=== PATIENT | female | born 1990 | race Caucasian/White ===

== ENCOUNTER 2016-12-10 20:07 | Inpatient (IN) | payer MEDICAID ==
[~2016-12-10] VITALS: Ht 162.6 cm; Wt 152.4 kg
[~2016-12-10 20:07] MED LIST: ALBU18HF2 IH
[2016-12-10] MEDS ORDERED: NITROGLYCERIN OINT 1GM/INCH UDPKT TD STA (21:19)
[2016-12-10] MEDS ORDERED: FUROSEMIDE 40MG/4ML VIAL IV STA (21:19)
[2016-12-10] MEDS ORDERED: ASPIRIN 81MG TABLET PO STA (21:19)
[2016-12-10 21:39] LABS: BASOPHILS % 0.4 % (0.0-2.0); EOSINOPHILS % 1.3 % (0.0-5.0); HEMATOCRIT. 45.2 % (36.0-48.0); HEMOGLOBIN. 14.2 g/dL (12.0-16.0); LYMPHOCYTES % 11.8 % (20.0-50.0); MEAN CORPUSCULAR HEMOGLOBIN 25.8 pg (28.0-32.0); MEAN CORPUSCULAR HGB CONC 31.3 g/dL (31.0-37.0); MEAN CORPUSCULAR VOLUME 82.3 fL (81.0-99.0); MEAN PLATELET VOLUME 9.1 fl (7.4-10.4); MONOCYTES % 7.7 % (2.0-8.0); NEUTROPHILS % 78.8 % (40.0-76.0); PLATELET 232 x1000/uL (130-400); RED BLOOD CELL COUNT 5.49 mill/uL (4.2-5.4); RED CELL DISTRIBUTION WIDTH 22.6 % (11.6-14.6); WHITE BLOOD COUNT 16.8 x1000/uL (4.5-11.0)
[2016-12-10 21:40] LABS: ADD RBC MORPHOLOGY YES; DIFFERENTIAL COMMENT 1
[2016-12-10 21:45] LABS: HCG SCREEN NEGATIVE; INR 1.2; PROTHROMBIN TIME 12.7 sec
[2016-12-10 21:46] LABS: ANION GAP 13; CALCIUM 8.2 mg/dL (8.5-10.1); CARBON DIOXIDE 33 mEq/L (21-32); CHLORIDE 98 mEq/L (98-107); INDEX HEMOLYSI 1 (1-3); INDEX ICTERIC 1 (1-4); INDEX LIPEMIC 1 (1-3); LIPASE 102 IU/L (73-393); UREA NITROGEN BLOOD 14 mg/dL (7-21)
[2016-12-10 21:54] LABS: ALANINE AMINOTRANSFERASE 29 IU/L (13-61); NT PRO B-TYPE NATRIURETIC PEP 1430 pg/mL (5-125); TROPONIN I < 0.02 ng/mL (0.00-0.04); eGFR > 60 mL/min (>60)
[2016-12-10 21:57] LABS: ANISOCYTOSIS 1+; PLATELET ESTIMATE NORMAL
[2016-12-11] VITALS (7 sets, daily range): BP systolic 98–113; BP diastolic 52–70
[2016-12-11] MEDS ORDERED: CEFTRIAXONE 1 G PREMIX 50 ML IV ONE (01:00)
[2016-12-11 02:01] LABS: CLARITY URINE CLOUDY (CLEAR); COLOR URINE YELLOW (YELLOW); GLUCOSE URINE NEGATIVE (NEGATIVE); KETONES URINE NEGATIVE (NEGATIVE); LEUKOCYTE ESTERASE URINE 2+ (NEGATIVE); NITRITE URINE NEGATIVE (NEGATIVE); OCCULT BLOOD URINE 2+ (NEGATIVE); PROTEIN URINE 1+ (NEGATIVE); SPECIFIC GRAVITY URINE 1.007 (1.005-1.030); UROBILINOGEN URINE 0.2 E.U./dL (0.2-1.0)
[2016-12-11 02:52] LABS: SQUAMOUS EPITHELIAL CELL URINE 3+ /lpf (RARE/1+)
[2016-12-11 02:54] LABS: BACTERIA URINE 2+
[2016-12-11] MEDS ORDERED: ACETAMINOPHEN 325MG TABLET PO PRN (06:15)
[2016-12-11] MEDS ORDERED: CLONIDINE 0.1MG TABLET PO PRN (06:15)
[2016-12-11] MEDS ORDERED: ONDANSETRON HCL 4MG/2ML VIAL IV PRN (06:15)
[2016-12-11] MEDS: FUROSEMIDE 40MG/4ML VIAL IVP SCH ×3 (06:41→21:28)
[2016-12-11] MEDS: ENOXAPARIN 40MG/0.4ML SYR SUBCUT SCH ×2 (08:05→21:29)
[2016-12-11 08:32] LABS: BASOPHILS % 0.4 % (0.0-2.0); EOSINOPHILS % 1.2 % (0.0-5.0); HEMATOCRIT. 43.4 % (36.0-48.0); HEMOGLOBIN. 13.6 g/dL (12.0-16.0); LYMPHOCYTES % 15.4 % (20.0-50.0); MEAN CORPUSCULAR HEMOGLOBIN 25.7 pg (28.0-32.0); MEAN CORPUSCULAR HGB CONC 31.3 g/dL (31.0-37.0); MEAN CORPUSCULAR VOLUME 82.3 fL (81.0-99.0); MEAN PLATELET VOLUME 9.2 fl (7.4-10.4); MONOCYTES % 7.7 % (2.0-8.0); NEUTROPHILS % 75.3 % (40.0-76.0); PLATELET 241 x1000/uL (130-400); RED BLOOD CELL COUNT 5.28 mill/uL (4.2-5.4); RED CELL DISTRIBUTION WIDTH 22.9 % (11.6-14.6); WHITE BLOOD COUNT 13.7 x1000/uL (4.5-11.0)
[2016-12-11 08:38] LABS: DIFFERENTIAL COMMENT 1
[2016-12-11 08:59] LABS: ALANINE AMINOTRANSFERASE 29 IU/L (13-61); ALBUMIN 3.1 g/dL (3.4-5.0); ANION GAP 15; CALCIUM 8.4 mg/dL (8.5-10.1); CARBON DIOXIDE 33 mEq/L (21-32); CHLORIDE 95 mEq/L (98-107); CREATINE KINASE 34 IU/L (26-192); CREATINE KINASE MB FRACTION 0.9 ng/mL (0.5-3.6); INDEX HEMOLYSI 1 (1-3); INDEX ICTERIC 1 (1-4); INDEX LIPEMIC 1 (1-3); MAGNESIUM 1.5 mg/dL (1.8-2.4); TROPONIN I < 0.02 ng/mL (0.00-0.04); UREA NITROGEN BLOOD 14 mg/dL (7-21); eGFR > 60 mL/min (>60)
[2016-12-11] MEDS ORDERED: IPRATROPIUM/ALBUTEROL 0.5-3(2.5)MG/3ML NEB HHN PRN (11:00)
[2016-12-11] MEDS: IPRATROPIUM/ALBUTEROL 0.5-3(2.5)MG/3ML NEB HHN SCH ×3 (12:07→21:14)
[2016-12-11 12:09] LABS: *AMPHETAMINES SCREEN URINE NEGATIVE (NEGATIVE); *BARBITURATES SCREEN URINE NEGATIVE (NEGATIVE); *BENZODIAZEPINES SCREEN URINE NEGATIVE (NEGATIVE); *COCAINE SCREEN URINE NEGATIVE (NEGATIVE); CANNABINOID URINE SCREEN NEGATIVE (NEGATIVE); ECSTASY MDMA SCREEN URINE NEGATIVE (NEGATIVE); METHADONE URINE SCREEN NEGATIVE (NEGATIVE); OPIATES URINE SCREEN NEGATIVE (NEGATIVE); PHENCYCLIDINE URINE SCREEN NEGATIVE (NEGATIVE)
[2016-12-11] MEDS: POTASSIUM CHLORIDE 20MEQ TABLET SR PO SCH (14:14)
[2016-12-11 15:53] LABS: CREATINE KINASE 44 IU/L (26-192); CREATINE KINASE MB FRACTION 1.1 ng/mL (0.5-3.6); INDEX HEMOLYSI 1 (1-3); TROPONIN I < 0.02 ng/mL (0.00-0.04)
[2016-12-11] MEDS ORDERED: MAGNESIUM 2 G PREMIX 50 ML IV NR (16:00)
[2016-12-11] MEDS ORDERED: CEFTRIAXONE 1 G PREMIX 50 ML IV SCH (18:15)
[2016-12-11] MEDS ORDERED: ASPI-1035 PO (19:18)
[2016-12-11] MEDS ORDERED: AMLO2.5T45 PO (19:18)
[2016-12-11] MEDS ORDERED: LEVO25TA7 PO (19:18)
[2016-12-12] MEDS: IPRATROPIUM/ALBUTEROL 0.5-3(2.5)MG/3ML NEB HHN SCH ×6 (00:58→20:09)
[2016-12-12] MEDS: CEFTRIAXONE 1 G PREMIX 50 ML IV SCH (01:17)
[2016-12-12 04:00] VITALS: BP 104/76
[2016-12-12] MEDS: FUROSEMIDE 40MG/4ML VIAL IVP SCH ×3 (05:53→21:26)
[2016-12-12 06:16] LABS: BASOPHILS % 0.2 % (0.0-2.0); EOSINOPHILS % 1.8 % (0.0-5.0); HEMATOCRIT. 43.6 % (36.0-48.0); LYMPHOCYTES % 17.3 % (20.0-50.0); MEAN CORPUSCULAR HEMOGLOBIN 26.5 pg (28.0-32.0); MEAN CORPUSCULAR VOLUME 82.7 fL (81.0-99.0); MEAN PLATELET VOLUME 9.5 fl (7.4-10.4); MONOCYTES % 8.4 % (2.0-8.0); NEUTROPHILS % 72.3 % (40.0-76.0); PLATELET 223 x1000/uL (130-400); RED BLOOD CELL COUNT 5.27 mill/uL (4.2-5.4); RED CELL DISTRIBUTION WIDTH 22.6 % (11.6-14.6); WHITE BLOOD COUNT 10.7 x1000/uL (4.5-11.0)
[2016-12-12 06:49] LABS: ANION GAP 14; CALCIUM 8.4 mg/dL (8.5-10.1); CARBON DIOXIDE 35 mEq/L (21-32); CHLORIDE 94 mEq/L (98-107); INDEX HEMOLYSI 1 (1-3); INDEX ICTERIC 1 (1-4); INDEX LIPEMIC 1 (1-3); UREA NITROGEN BLOOD 15 mg/dL (7-21); eGFR > 60 mL/min (>60)
[2016-12-12 07:04] LABS: DIFFERENTIAL COMMENT 1
[2016-12-12 08:00] VITALS: BP 105/59
[2016-12-12] MEDS: AMLODIPINE 2.5MG TABLET PO SCH (08:20)
[2016-12-12] MEDS: POTASSIUM CHLORIDE 20MEQ TABLET SR PO SCH (08:20)
[2016-12-12] MEDS: ASPIRIN 81MG EC TABLET PO SCH (08:20)
[2016-12-12] MEDS: LEVOTHYROXINE SODIUM 25MCG TABLET PO SCH (08:20)
[2016-12-12] MEDS: MAGNESIUM OXIDE 400MG TABLET PO SCH (08:20)
[2016-12-12] MEDS: ENOXAPARIN 40MG/0.4ML SYR SUBCUT SCH ×2 (08:21→21:26)
[2016-12-12 12:00] VITALS: BP 98/70
[2016-12-12 20:00] VITALS: BP 101/66
[2016-12-13] VITALS: BP 105/70
[2016-12-13] MEDS: IPRATROPIUM/ALBUTEROL 0.5-3(2.5)MG/3ML NEB HHN SCH ×6 (00:19→20:52)
[2016-12-13] MEDS: CEFTRIAXONE 1 G PREMIX 50 ML IV SCH (00:57)
[2016-12-13 04:00] VITALS: BP 100/71
[2016-12-13] MEDS: FUROSEMIDE 40MG/4ML VIAL IVP SCH ×3 (05:31→21:58)
[2016-12-13 06:49] LABS: BASOPHILS % 0.3 % (0.0-2.0); EOSINOPHILS % 2.5 % (0.0-5.0); HEMATOCRIT. 44.6 % (36.0-48.0); HEMOGLOBIN. 14.3 g/dL (12.0-16.0); LYMPHOCYTES % 18.1 % (20.0-50.0); MEAN CORPUSCULAR HEMOGLOBIN 26.4 pg (28.0-32.0); MEAN CORPUSCULAR HGB CONC 32.1 g/dL (31.0-37.0); MEAN CORPUSCULAR VOLUME 82.4 fL (81.0-99.0); MEAN PLATELET VOLUME 9.6 fl (7.4-10.4); MONOCYTES % 8.8 % (2.0-8.0); NEUTROPHILS % 70.3 % (40.0-76.0); PLATELET 234 x1000/uL (130-400); RED BLOOD CELL COUNT 5.41 mill/uL (4.2-5.4); RED CELL DISTRIBUTION WIDTH 22.6 % (11.6-14.6); WHITE BLOOD COUNT 10.8 x1000/uL (4.5-11.0)
[2016-12-13 06:55] LABS: DIFFERENTIAL COMMENT 1
[2016-12-13 07:48] LABS: CHLORIDE 91 mEq/L (98-107); INDEX HEMOLYSI 1 (1-3); INDEX ICTERIC 1 (1-4); INDEX LIPEMIC 1 (1-3)
[2016-12-13 08:00] VITALS: BP 113/64
[2016-12-13 08:01] LABS: ANION GAP 15; CALCIUM 8.4 mg/dL (8.5-10.1); CARBON DIOXIDE 34 mEq/L (21-32); UREA NITROGEN BLOOD 16 mg/dL (7-21); eGFR > 60 mL/min (>60)
[2016-12-13] MEDS: POTASSIUM CHLORIDE 20MEQ TABLET SR PO SCH (08:28)
[2016-12-13] MEDS: MAGNESIUM OXIDE 400MG TABLET PO SCH (08:28)
[2016-12-13] MEDS: ASPIRIN 81MG EC TABLET PO SCH (08:28)
[2016-12-13] MEDS: LEVOTHYROXINE SODIUM 25MCG TABLET PO SCH (08:28)
[2016-12-13] MEDS: AMLODIPINE 2.5MG TABLET PO SCH (08:32)
[2016-12-13] MEDS: ENOXAPARIN 40MG/0.4ML SYR SUBCUT SCH ×2 (08:33→21:57)
[2016-12-13 08:45] LABS: MAGNESIUM 1.4 mg/dL (1.8-2.4)
[2016-12-13] MEDS ORDERED: POTASSIUM CHLORIDE 20MEQ TABLET SR PO SCH (10:15)
[2016-12-13 11:39] VITALS: BP 94/50
[2016-12-13] MEDS ORDERED: MAGNESIUM 2 G PREMIX 50 ML IV SCH (12:00)
[2016-12-13] MEDS: SILDENAFIL CITRATE 20MG TABLET PO SCH ×2 (14:12→22:00)
[2016-12-13 16:00] VITALS: BP 112/60
[2016-12-13 20:00] VITALS: BP 98/60
[2016-12-14] VITALS: BP 101/62
[2016-12-14] MEDS: IPRATROPIUM/ALBUTEROL 0.5-3(2.5)MG/3ML NEB HHN SCH ×6 (00:40→21:33)
[2016-12-14] MEDS: CEFTRIAXONE 1 G PREMIX 50 ML IV SCH (00:51)
[2016-12-14 04:00] VITALS: BP 101/62
[2016-12-14] MEDS: SILDENAFIL CITRATE 20MG TABLET PO SCH ×3 (06:00→21:47)
[2016-12-14] MEDS: FUROSEMIDE 40MG/4ML VIAL IVP SCH ×2 (06:00→21:48)
[2016-12-14] MEDS: LEVOTHYROXINE SODIUM 25MCG TABLET PO SCH (07:48)
[2016-12-14] MEDS: ENOXAPARIN 40MG/0.4ML SYR SUBCUT SCH ×2 (08:31→21:48)
[2016-12-14] MEDS: POTASSIUM CHLORIDE 20MEQ TABLET SR PO SCH (08:31)
[2016-12-14] MEDS: MAGNESIUM OXIDE 400MG TABLET PO SCH (08:31)
[2016-12-14] MEDS: ASPIRIN 81MG EC TABLET PO SCH (08:31)
[2016-12-14] MEDS: AMLODIPINE 2.5MG TABLET PO SCH (09:00)
[2016-12-14 12:00] VITALS: BP 98/62
[2016-12-14 12:34] LABS: BASOPHILS % 0.4 % (0.0-2.0); EOSINOPHILS % 3.3 % (0.0-5.0); HEMATOCRIT. 45.2 % (36.0-48.0); HEMOGLOBIN. 14.3 g/dL (12.0-16.0); LYMPHOCYTES % 18.2 % (20.0-50.0); MEAN CORPUSCULAR HEMOGLOBIN 26.3 pg (28.0-32.0); MEAN CORPUSCULAR HGB CONC 31.6 g/dL (31.0-37.0); MEAN CORPUSCULAR VOLUME 83.3 fL (81.0-99.0); MEAN PLATELET VOLUME 9.5 fl (7.4-10.4); MONOCYTES % 10.9 % (2.0-8.0); NEUTROPHILS % 67.2 % (40.0-76.0); PLATELET 222 x1000/uL (130-400); RED BLOOD CELL COUNT 5.43 mill/uL (4.2-5.4); RED CELL DISTRIBUTION WIDTH 22.1 % (11.6-14.6)
[2016-12-14 12:39] LABS: DIFFERENTIAL COMMENT 1
[2016-12-14 12:53] LABS: ANION GAP 10; CALCIUM 8.6 mg/dL (8.5-10.1); CARBON DIOXIDE 37 mEq/L (21-32); CHLORIDE 93 mEq/L (98-107); INDEX HEMOLYSI 1 (1-3); INDEX ICTERIC 1 (1-4); INDEX LIPEMIC 1 (1-3); MAGNESIUM 1.9 mg/dL (1.8-2.4); UREA NITROGEN BLOOD 15 mg/dL (7-21); eGFR > 60 mL/min (>60)
[2016-12-14 16:03] VITALS: BP 100/56
[2016-12-14 20:00] VITALS: BP 105/68
[2016-12-15] VITALS: BP 99/60
[2016-12-15] MEDS: CEFTRIAXONE 1 G PREMIX 50 ML IV SCH (00:43)
[2016-12-15] MEDS: IPRATROPIUM/ALBUTEROL 0.5-3(2.5)MG/3ML NEB HHN SCH ×5 (01:26→15:34)
[2016-12-15 04:00] VITALS: BP 103/71
[2016-12-15] MEDS: SILDENAFIL CITRATE 20MG TABLET PO SCH ×2 (06:06→16:00)
[2016-12-15 06:36] LABS: BASOPHILS % 0.5 % (0.0-2.0); EOSINOPHILS % 3.2 % (0.0-5.0); HEMATOCRIT. 44.9 % (36.0-48.0); HEMOGLOBIN. 14.2 g/dL (12.0-16.0); LYMPHOCYTES % 17.7 % (20.0-50.0); MEAN CORPUSCULAR HEMOGLOBIN 26.5 pg (28.0-32.0); MEAN CORPUSCULAR HGB CONC 31.7 g/dL (31.0-37.0); MEAN CORPUSCULAR VOLUME 83.7 fL (81.0-99.0); MEAN PLATELET VOLUME 9.5 fl (7.4-10.4); MONOCYTES % 9.5 % (2.0-8.0); NEUTROPHILS % 69.1 % (40.0-76.0); PLATELET 207 x1000/uL (130-400); RED BLOOD CELL COUNT 5.37 mill/uL (4.2-5.4); RED CELL DISTRIBUTION WIDTH 22.2 % (11.6-14.6); WHITE BLOOD COUNT 10.1 x1000/uL (4.5-11.0)
[2016-12-15 07:10] LABS: DIFFERENTIAL COMMENT 1
[2016-12-15 07:11] LABS: ADD RBC MORPHOLOGY NO
[2016-12-15 07:36] LABS: ANION GAP 13; CALCIUM 8.6 mg/dL (8.5-10.1); CARBON DIOXIDE 35 mEq/L (21-32); CHLORIDE 92 mEq/L (98-107); INDEX HEMOLYSI 1 (1-3); INDEX ICTERIC 1 (1-4); INDEX LIPEMIC 1 (1-3); MAGNESIUM 1.7 mg/dL (1.8-2.4); UREA NITROGEN BLOOD 15 mg/dL (7-21); eGFR > 60 mL/min (>60)
[2016-12-15 08:00] VITALS: BP 101/57
[2016-12-15] MEDS: ASPIRIN 81MG EC TABLET PO SCH (08:19)
[2016-12-15] MEDS: LEVOTHYROXINE SODIUM 25MCG TABLET PO SCH (08:19)
[2016-12-15] MEDS: MAGNESIUM OXIDE 400MG TABLET PO SCH (08:19)
[2016-12-15] MEDS: POTASSIUM CHLORIDE 20MEQ TABLET SR PO SCH (08:20)
[2016-12-15] MEDS: ENOXAPARIN 40MG/0.4ML SYR SUBCUT SCH (08:20)
[2016-12-15] MEDS: FUROSEMIDE 40MG/4ML VIAL IVP SCH (08:20)
[2016-12-15] MEDS: AMLODIPINE 2.5MG TABLET PO SCH (08:21)
[2016-12-15 12:00] VITALS: BP 98/65
[2016-12-15] MEDS ORDERED: MAGNESIUM OXIDE 400MG TABLET PO SCH (13:15)
[2016-12-15 16:00] VITALS: BP 123/65
[2016-12-15 17:01] VITALS: BP 123/65
== END 2016-12-15 18:00 | disposition home or self-care (01) | DRG 720 ==
LOC: ER 20:08 → 7WST 23:55
PROVIDERS: ADMIT Internal Medicine; ATTEND Internal Medicine
PROC: 5A09357 Assistance with Respiratory Ventilation, Less than 24 Consecutive Hours, Continuous Positive Airway Pressure (ICD-10-PCS; principal; 2016-12-11)
DX: A41.9 Sepsis, unspecified organism (principal); J96.00 Acute respiratory failure, unspecified whether with hypoxia or hypercapnia; I50.23 Acute on chronic systolic (congestive) heart failure; I31.3 Pericardial effusion (noninflammatory); I42.9 Cardiomyopathy, unspecified; Z68.43 Body mass index [BMI] 50.0-59.9, adult; E83.42 Hypomagnesemia; I27.2 Other secondary pulmonary hypertension; E87.6 Hypokalemia; E66.09 Other obesity due to excess calories; E66.2 Morbid (severe) obesity with alveolar hypoventilation; N39.0 Urinary tract infection, site not specified; Z99.81 Dependence on supplemental oxygen; Z91.19 Patient's noncompliance with other medical treatment and regimen
CPT/HCPCS: 36415; 71010; 74176; 76705; 80048; 80053; 80305; 81001; 82550; 82553; 83690; 83735; 83880; 84484; 84703; 85025; 85610; 85730; 87086; 93005; 93970; 94640; 94660; 94664; 96365; 96375; 99285; J0696; J1650; J1940; J3475; J7050; J7620

== ENCOUNTER 2018-05-27 20:24 | Emergency (ER) | payer MEDICAID ==
[~2018-05-27] VITALS: Ht 165.1 cm; Wt 136.0 kg
[~2018-05-27 20:24] MED LIST changes: +AMLO2.5T45 PO; +ASPI-1159 PO; +LEVO25TA7 PO
[2018-05-27] MEDS ORDERED: ONDANSETRON HCL 4MG/2ML VIAL IV STA (20:50)
[2018-05-27] MEDS ORDERED: MECLIZINE 25MG TABLET PO ONE (21:00)
[2018-05-27 22:06] LABS: BASOPHILS % 0.6 % (0.0-2.0); EOSINOPHILS % 2.8 % (0.0-5.0); HEMATOCRIT. 41.1 % (36.0-48.0); HEMOGLOBIN. 12.6 g/dL (12.0-16.0); MEAN CORPUSCULAR HEMOGLOBIN 24.1 pg (28.0-32.0); MEAN CORPUSCULAR VOLUME 78.8 fL (81.0-99.0); MEAN PLATELET VOLUME 8.6 fl (7.4-10.4); MONOCYTES % 9.8 % (2.0-8.0); NEUTROPHILS % 65.8 % (40.0-76.0); PLATELET 242 x1000/uL (130-400); RED BLOOD CELL COUNT 5.22 mill/uL (4.2-5.4)
[2018-05-27 22:09] LABS: CHLORIDE 95 mEq/L (98-107)
[2018-05-27 22:13] LABS: INR 1.4; PARTIAL THROMBOPLASTIN TIME 26.2 sec (23.4-31.0)
[2018-05-27 22:19] LABS: HCG SCREEN NEGATIVE
[2018-05-27 22:40] LABS: PLATELET ESTIMATE NORMAL
[2018-05-28] MEDS ORDERED: POTASSIUM CHLORIDE 20MEQ TABLET SR PO ONE
[2018-05-28 01:08] VITALS: BP 111/50
== END 2018-05-28 01:19 | disposition home or self-care (01) ==
LOC: ER 20:24
DX: R42 Dizziness and giddiness (principal); J32.0 Chronic maxillary sinusitis; M27.40 Unspecified cyst of jaw; I50.9 Heart failure, unspecified
CPT/HCPCS: 36415; 70450; 71045; 80053; 83880; 84484; 84703; 85025; 85610; 85730; 93005; 93970; 96374; 99285; J2405; Z7610; J8597